=== PATIENT | male | born 1995 | race Caucasian/White ===

== ENCOUNTER 2017-10-03 09:11 | Emergency (ER) | payer BC ==
[2017-10-03 09:16] VITALS: BP 118/72
--- NOTE | 2017-10-03 09:43 | EDPHY ---
H & P Stated Complaint: right shoulder dislocation Time Seen by Provider: 10/03/17 09:38 HPI/ROS: HPI: This is a 22-year-old male who presents with Chief Complaint: Right shoulder dislocation Location: Right shoulder Quality: Dislocation Duration: 1-3 hours prior to arrival Signs and Symptoms: No bleeding, no radiation, no numbness, no weakness, no tingling, no skin color changes, + decreased range of motion, no swelling, no pain, no fever Timing: Acute on chronic Severity: Moderate Context: Patient is right-hand dominant, woke up this morning after sleeping on the couch with decreased range of motion in his right shoulder. Patient has a history of 4 prior shoulder dislocations over the last year followed by Orthopedics in [facility]. He completed physical therapy outpatient. He believes that he may have slept "wrong" while on the couch. He arrived here yesterday from [place] and will be permanently living in the area. He denies any paresthesias, skin color changes, trauma. He reports that he was told that if he continues to dislocate his shoulder he may require surgery. Patient does have healthcare insurance and is establish care with a neurologist here in the area due to his history of seizures-takes Renu. He does not have a sling in his possession at this time. Modifying Factors: None Comment: ROS: see HPI Constitutional: No fever, no chills, no weight loss Eyes: No blurred vision Respiratory: No shortness of breath, no cough Cardiovascular: No chest pain Gastrointestinal: No nausea, no vomiting no diarrhea Genitourinary: No dysuria Extremities: No myalgias Neurologic: No weakness, no numbness Skin: No rashes Hematologic: No bruising, no bleeding MEDICAL/SURGICAL/SOCIAL HISTORY: Medical history: Shoulder dislocations, seizure disorder. Surgical history: Denies Social history: Recently moved to the area from [place]. Employed. CONSTITUTIONAL: Extremely polite and cooperative young adult white male, awake and alert, no obvious distress HEENT: Atraumatic and normocephalic. EXTREMITIES: 2/2 pulses, strength 5/5, right arm held in AB duction with shoulder lacking normal rounded contour. Patient unable to touch ipsilateral arm to contralateral shoulder. no Tenderness to palpation over AC joint. DIP/PIP /MCP flexion/extension intact with good light touch sensation. no deformities, no clubbing, no cyanosis or edema. NEUROLOGICAL: no focal neuro deficits. GCS 15. Light touch sensation intact. SKIN: Warm and dry, no erythema. no rash. Good capillary refill. Source: Patient Exam Limitations: No limitations - Personal History Current Tetanus/Diphtheria Vaccine: Yes - Medical/Surgical History Hx Asthma: No Hx Chronic Respiratory Disease: No Hx Diabetes: No Hx Cardiac Disease: No Hx Renal Disease: No Hx Cirrhosis: No Hx Alcoholism: No Other PMH: Seizures - Social History Smoking Status: Never smoked Constitutional: Initial Vital Signs Temperature (C) 36.5 C 10/03/17 09:13 Heart Rate 54 L 10/03/17 09:13 Respiratory Rate 18 10/03/17 09:13 Blood Pressure 118/72 10/03/17 09:13 O2 Sat (%) 98 10/03/17 09:13 O2 Delivery Mode Room Air Allergies/Adverse Reactions: No Known Allergies Allergy (Unverified 10/03/17 09:16) Home Medications: Medication Instructions Recorded [facility] 10/03/17 Medical Decision Making - Diagnostics Imaging Results: Imaging Impressions Shoulder X-Ray 10/03/17 09:21 Impression: Anterior shoulder dislocation. Shoulder X-Ray 10/03/17 09:37 Impression: Apparent interval reduction of dislocation as assessed on this single view, with a probable small Hill-Sachs. Procedures: Procedure: Dislocation reduction. Hematoma block performed using 12 cc of 1% lidocaine in the right shoulder joint. The dislocation of the right shoulder was reduced using Ariel technique without complications. Post reduction the patient's neurovascular exam is normal. Post reduction x-ray demonstrates reduction of the joint to the anatomic position. The procedure was performed by myself. ED Course/Re-evaluation: One view x-ray shows anterior dislocation with no fracture at bedside. Patient reduced using hematoma block and Ariel method on 1st attempt. Placed in sling. Ortho follow-up. Post reduction x-ray shows shoulder in normal anatomic alignment; ? small Hill Sachs deformity/Bony Bankart appreciated No signs of neurovascular compromise/tenting of skin/compartment syndrome/ extremities and joints examined above and below area of concern and are neurovascularly intact. This patient was seen under the supervision of my secondary supervising physician. I evaluated care for this patient independently. Discussed this patient with Dr. Torres. Differential Diagnosis: Differential diagnosis includes but is not limited to anterior shoulder dislocation, posterior shoulder dislocation, inferior shoulder dislocation, clavicle fracture, humerus fracture, scapular fracture, acromioclavicular injury , glenohumeral instability, rotator cuff tear. Departure - Departure Disposition: Home, Routine, Self-Care Clinical Impression: Hill Sachs deformity, right Closed anterior dislocation of right shoulder Qualifiers: Encounter type: initial encounter Qualified Code(s): S43.014A - Anterior dislocation of right humerus, initial encounter Condition: Good Instructions: Shoulder Dislocation (ED), How to Use a Sling (ED) Additional Instructions: Wear the sling 31/10 except to shower until seen by Orthopedics. Activity:Do not use injured extremity until seen by your referral physician. Take Tylenol 650 mg every 4 hours and/or Ibuprofen 600 mg every 8 hours with food as needed for pain. Apply ice for 30 minutes at a time; 2-3 times per day for the next 1-2 days. Follow up with Orthopedics in 7-10 days at which time they will evaluate and recommend with you if conservative management versus surgery is indicated. Establish care with primary care provider in the area. A referral for Internal Medicine provided as well. Follow-Up: Please follow-up as noted above. Follow up sooner if your condition worsens or if you develop any new problems Call as soon as possible for an appointment. Be clear when you call for an appointment that this is an Emergency Department follow-up. Contact the Emergency Department if you are having trouble arranging follow up care. Our referrals are not based on your insurance network. When time allows, contact your insurance carrier to verify the referral physician is in your plan. If not, get a referral for an in-network contract manager. Please ask us if you have any questions. Return to the ER immediately if you experience new or worsening pain, discoloration, numbness, tingling, or any other symptoms that concern you. Referrals: Keenan Leon MD [Medical Doctor] - As per Instructions Erika Mcneil MD [Medical Doctor] - As per Instructions
== END 2017-10-03 10:12 | disposition home or self-care (01) ==
PROC: 0RSJXZZ Reposition Right Shoulder Joint, External Approach (ICD-10-PCS; principal; 2017-10-03)
DX: S43.014A Anterior dislocation of right humerus, initial encounter (principal); X58.XXXA Exposure to other specified factors, initial encounter; Y99.8 Other external cause status; Y93.84 Activity, sleeping